=== PATIENT | female | born 1985 | race Caucasian/White ===

== ENCOUNTER 2022-12-09 10:27 | Outpatient (CLI) | payer OTHER, SELFPAY ==
--- NOTE | 2022-12-14 11:14 | WPDNEUROLOGY ---
Neurology EEG Report General Information Date of Study: 12/09/22 TEST eeg
--- NOTE | 2022-12-14 14:10 | WPDNEUROLOGY ---
Neurology EEG Report General Information Date of Study: 12/09/22 TEST eeg DIAGNOSIS Seizures CONDITION OF RECORDING awake drowsy and sleep EEG NUMBER [id number] CLINICAL HISTORY patient reports she has been having seizure for about 9 years, usually she loses consciousness but does not convulse, though usually bites her tongue and very tired afterwards. EEG DESCRIPTION Background rhythm consists of low to medium voltage 5 to 7 hertz per 2nd theta activity admixed with 2 to 3 hertz per 2nd delta activity and with poor destiney posterior grading. Bilateral symmetrical sleep activity seen during sleep with symmetrical sleep spindles. Hyperventilation not done. Non paroxysmal. Nonfocal. Nonlateralizing. IMPRESSION Abnormal record due to the absence of the normal background rhythm with presence of bihemispheric theta and delta activity but again without any paroxysmal discharge. These abnormalities are suggestive of organic or metabolic encephalopathy or postictal state clinical correlation recommended.
== END 2022-12-09 10:28 | disposition home or self-care (01) ==
PROVIDERS: PCP Internal Medicine; Visit Provider Internal Medicine
DX: R56.9 Unspecified convulsions (principal); R94.01 Abnormal electroencephalogram [EEG]
CPT/HCPCS: 95816